=== PATIENT | female | born 1945 | race Two or more races ===

== ENCOUNTER 2017-06-12 09:51 | Emergency (ER) | payer MEDICARE, BC ==
[~2017-06-12] VITALS: Ht 152.4 cm; Wt 80.0 kg
[~2017-06-12 09:51] MED LIST: AMLODIPINE; ECOTRIN PO; INSU100C11 SQ; INSULIN REGULAR; IRBESARTAN; METF500T4 PO; METFORMIN HCL PO; PANTOPRAZOLE
[2017-06-12] MEDS ORDERED: SODIUM CHLORIDE 0.9% 500 ML IV ONE (10:21)
[2017-06-12] MEDS ORDERED: METOCLOPRAMIDE HCL 10MG/2ML VIAL IV ONE (10:30)
[2017-06-12] MEDS ORDERED: DIPHENHYDRAMINE 50MG/ML VIAL IV ONE (10:30)
[2017-06-12 10:47] LABS: EOSINOPHILS % 1.7 % (0.0-5.0); HEMOGLOBIN. 13.5 g/dL (12.0-16.0); LYMPHOCYTES % 28.7 % (20.0-50.0); MEAN CORPUSCULAR HEMOGLOBIN 29.4 pg (28.0-32.0); MEAN CORPUSCULAR VOLUME 88.8 fL (81.0-99.0); MEAN PLATELET VOLUME 7.7 fl (7.4-10.4); MONOCYTES % 6.8 % (2.0-8.0); NEUTROPHILS % 61.8 % (40.0-76.0); PLATELET 261 x1000/uL (130-400); RED BLOOD CELL COUNT 4.61 mill/uL (4.2-5.4); RED CELL DISTRIBUTION WIDTH 14.4 % (11.6-14.6)
[2017-06-12 11:03] LABS: CARBON DIOXIDE 25 mEq/L (21-32); CHLORIDE 109 mEq/L (98-107)
[2017-06-12 13:00] LABS: CLARITY URINE CLEAR (CLEAR); COLOR URINE YELLOW (YELLOW); GLUCOSE URINE 2+ (NEGATIVE); KETONES URINE TRACE (NEGATIVE); LEUKOCYTE ESTERASE URINE NEGATIVE (NEGATIVE); NITRITE URINE NEGATIVE (NEGATIVE); OCCULT BLOOD URINE NEGATIVE (NEGATIVE); PH URINE 5.5 (4.5-8.0); PROTEIN URINE NEGATIVE (NEGATIVE); SPECIFIC GRAVITY URINE 1.024 (1.005-1.030); UROBILINOGEN URINE 0.2 E.U./dL (0.2-1.0)
[2017-06-12 14:33] VITALS: BP 151/76
== END 2017-06-12 14:50 | disposition home or self-care (01) ==
LOC: ER 12:30
DX: H81.399 Other peripheral vertigo, unspecified ear (principal); R51 Headache; K21.9 Gastro-esophageal reflux disease without esophagitis; I10 Essential (primary) hypertension; E11.9 Type 2 diabetes mellitus without complications; E78.00 Pure hypercholesterolemia, unspecified; Z86.73 Personal history of transient ischemic attack (TIA), and cerebral infarction without residual deficits; Z88.0 Allergy status to penicillin; Z88.2 Allergy status to sulfonamides; Z88.8 Allergy status to other drugs, medicaments and biological substances; Z79.4 Long term (current) use of insulin; Z79.82 Long term (current) use of aspirin
CPT/HCPCS: 36415; 70450; 71010; 80053; 81001; 85025; 93005; 96361; 96374; 96375; 99285; J1200; J2765; J7040

== ENCOUNTER 2019-08-09 09:24 | Emergency (ER) | payer MEDICARE, BC ==
[~2019-08-09] VITALS: Ht 165.1 cm; Wt 82.0 kg
[~2019-08-09 09:24] MED LIST changes: +METF-414 PO; -METF500T4 PO
[2019-08-09] MEDS ORDERED: KETOROLAC 30MG/ML VIAL IM ONE (10:30)
[2019-08-09 11:31] VITALS: BP 132/68
== END 2019-08-09 11:08 | disposition home or self-care (01) ==
LOC: ER 09:50
DX: M25.531 Pain in right wrist (principal); I11.9 Hypertensive heart disease without heart failure; K21.9 Gastro-esophageal reflux disease without esophagitis; E11.9 Type 2 diabetes mellitus without complications; E78.00 Pure hypercholesterolemia, unspecified; Z90.49 Acquired absence of other specified parts of digestive tract; Z90.710 Acquired absence of both cervix and uterus; Z88.0 Allergy status to penicillin; Z88.2 Allergy status to sulfonamides; Z91.041 Radiographic dye allergy status; Z79.4 Long term (current) use of insulin; Z86.73 Personal history of transient ischemic attack (TIA), and cerebral infarction without residual deficits
CPT/HCPCS: 73110; 96372; 99283; J1885

== ENCOUNTER 2019-12-13 23:39 | Inpatient (IN) | payer MEDICARE, BC ==
[~2019-12-13] VITALS: Ht 152.4 cm; Wt 73.9 kg
[2019-12-14] MEDS ORDERED: ASPIRIN 81MG TABLET PO ONE (00:30)
[2019-12-14] MEDS ORDERED: NITROGLYCERIN 0.4MG TABLET SL SL ONE (01:00)
[2019-12-14 01:27] LABS: BASOPHILS % 0.8 % (0.0-2.0); EOSINOPHILS % 0.9 % (0.0-5.0); HEMATOCRIT. 41.2 % (36.0-48.0); HEMOGLOBIN. 13.6 g/dL (12.0-16.0); LYMPHOCYTES % 20.3 % (20.0-50.0); MEAN CORPUSCULAR HEMOGLOBIN 29.4 pg (28.0-32.0); MEAN CORPUSCULAR VOLUME 88.9 fL (81.0-99.0); MEAN PLATELET VOLUME 7.9 fl (7.4-10.4); MONOCYTES % 7.9 % (2.0-8.0); NEUTROPHILS % 70.1 % (40.0-76.0); PLATELET 274 x1000/uL (130-400); RED BLOOD CELL COUNT 4.63 mill/uL (4.2-5.4)
[2019-12-14 01:31] LABS: CHLORIDE 109 mEq/L (98-107)
[2019-12-14 10:00] VITALS: BP 143/57
[2019-12-14] MEDS ORDERED: IPRATROPIUM/ALBUTEROL 0.5-3(2.5)MG/3ML NEB NEB PRN (11:00)
[2019-12-14] MEDS ORDERED: GUAIFENESIN 200MG/10ML SUGAR FREE UDC PO PRN (11:00)
[2019-12-14] MEDS ORDERED: ONDANSETRON HCL 4MG/2ML INJ IV PRN (11:00)
[2019-12-14] MEDS ORDERED: HYDROCODONE/ACETAMINOPHEN 5/325MG TABLET PO PRN (11:00)
[2019-12-14] MEDS ORDERED: ACETAMINOPHEN 650MG SUPP PR PRN (11:00)
[2019-12-14] MEDS ORDERED: DEXTROSE 50% WATER 50ML SYRINGE IV PRN (11:00)
[2019-12-14] MEDS ORDERED: DOCUSATE SODIUM 100MG CAPSULE PO PRN (11:00)
[2019-12-14] MEDS ORDERED: CLONIDINE 0.1MG TABLET PO PRN (11:00)
[2019-12-14] MEDS ORDERED: DIPHENHYDRAMINE 50MG/ML VIAL IV PRN (11:00)
[2019-12-14] MEDS ORDERED: LORAZEPAM 0.5MG TABLET PO PRN (11:00)
[2019-12-14] MEDS ORDERED: ACETAMINOPHEN 325MG TABLET PO PRN (11:00)
[2019-12-14] MEDS ORDERED: NA PHOS,M-B/NA PHOS,DI-BA ENEMA 118ML PR PRN (11:00)
[2019-12-14] MEDS ORDERED: MAGNESIUM/ALUMINUM HYDROXIDE/SIMETHICONE 30ML UDC PO PRN (11:00)
[2019-12-14] MEDS ORDERED: INSLIS SUBCUT (11:09)
[2019-12-14] MEDS ORDERED: CHOL200059 MT (11:10)
[2019-12-14] MEDS ORDERED: GABA-529 MT (11:10)
[2019-12-14] MEDS ORDERED: DULA1.5P SQ (11:10)
[2019-12-14] MEDS ORDERED: OMEG100017 MT (11:10)
[2019-12-14] MEDS ORDERED: FAMO40TA70 MT (11:10)
[2019-12-14] MEDS ORDERED: ROSU5TAB MT (11:10)
[2019-12-14] MEDS ORDERED: AMLO10TA80 MT (11:10)
[2019-12-14] MEDS ORDERED: LOSA50TA41 MT (11:12)
[2019-12-14] MEDS ORDERED: HYDR-4233 TP (11:12)
[2019-12-14 12:00] VITALS: BP 143/57
[2019-12-14] MEDS: BLOOD SUGAR DIAGNOSTIC STRIP TEST SCH ×3 (12:40→20:43)
[2019-12-14] MEDS: ENOXAPARIN 40MG/0.4ML SYR SUBCUT SCH (13:31)
[2019-12-14] MEDS: INSULIN LISPRO 100 UNITS/ML SUBCUT SCH ×3 (13:32→20:59)
[2019-12-14 16:00] VITALS: BP 117/55
[2019-12-14 16:24] LABS: CLARITY URINE CLEAR (CLEAR); COLOR URINE YELLOW (YELLOW); KETONES URINE NEGATIVE (NEGATIVE); LEUKOCYTE ESTERASE URINE TRACE (NEGATIVE); NITRITE URINE NEGATIVE (NEGATIVE); OCCULT BLOOD URINE NEGATIVE (NEGATIVE); PH URINE 7.5 (4.5-8.0); PROTEIN URINE NEGATIVE (NEGATIVE); SPECIFIC GRAVITY URINE 1.013 (1.005-1.030); UROBILINOGEN URINE 0.2 E.U./dL (0.2-1.0)
[2019-12-14 16:55] LABS: *AMPHETAMINES SCREEN URINE NEGATIVE (NEGATIVE); *BARBITURATES SCREEN URINE NEGATIVE (NEGATIVE); *BENZODIAZEPINES SCREEN URINE NEGATIVE (NEGATIVE); *COCAINE SCREEN URINE NEGATIVE (NEGATIVE)
[2019-12-14 16:56] LABS: CANNABINOID URINE SCREEN NEGATIVE (NEGATIVE); METHADONE URINE SCREEN NEGATIVE (NEGATIVE); OPIATES URINE SCREEN NEGATIVE (NEGATIVE); PHENCYCLIDINE URINE SCREEN NEGATIVE (NEGATIVE)
[2019-12-14 17:08] LABS: PROTHROMBIN TIME 10.8 sec (9.6-11.0)
[2019-12-14 18:26] LABS: CREATINE KINASE MB FRACTION 1.5 ng/mL (0.5-3.6)
[2019-12-14 20:00] VITALS: BP 144/57
[2019-12-15] VITALS: BP 132/59
[2019-12-15 00:35] LABS: CREATINE KINASE MB FRACTION 1.2 ng/mL (0.5-3.6)
[2019-12-15 04:00] VITALS: BP 145/49
[2019-12-15 07:06] LABS: CHLORIDE 109 mEq/L (98-107)
[2019-12-15 07:19] LABS: BASOPHILS % 1.1 % (0.0-2.0); HEMATOCRIT. 39.2 % (36.0-48.0); HEMOGLOBIN. 13.2 g/dL (12.0-16.0); LYMPHOCYTES % 37.9 % (20.0-50.0); MEAN CORPUSCULAR HEMOGLOBIN 29.9 pg (28.0-32.0); MEAN CORPUSCULAR VOLUME 88.5 fL (81.0-99.0); MONOCYTES % 9.1 % (2.0-8.0); NEUTROPHILS % 48.9 % (40.0-76.0); PLATELET 271 x1000/uL (130-400); RED BLOOD CELL COUNT 4.43 mill/uL (4.2-5.4); RED CELL DISTRIBUTION WIDTH 14.7 % (11.6-14.6)
[2019-12-15 07:40] LABS: HDL CHOLESTEROL 71 mg/dL (40-59); T4 FREE 1.01 ng/dL (0.76-1.46)
[2019-12-15 07:41] LABS: LDL CHOLESTEROL 84 mg/dL (5-100)
[2019-12-15] MEDS: BLOOD SUGAR DIAGNOSTIC STRIP TEST SCH ×2 (07:44→12:50)
[2019-12-15] MEDS: INSULIN LISPRO 100 UNITS/ML SUBCUT SCH ×2 (07:45→12:51)
[2019-12-15 08:00] VITALS: BP 140/58
[2019-12-15] MEDS ORDERED: ASPIRIN 81MG EC TABLET PO SCH (09:00)
[2019-12-15] MEDS: ENOXAPARIN 40MG/0.4ML SYR SUBCUT SCH (09:57)
[2019-12-15 12:00] VITALS: BP 144/95
[2019-12-15 15:55] VITALS: BP 124/51
[2019-12-15 16:01] VITALS: BP 124/51
[2019-12-15] MEDS ORDERED: FAMOTIDINE 20MG TABLET PO SCH (21:00)
== END 2019-12-15 17:43 | disposition home or self-care (01) | DRG 391 ==
LOC: ER 23:39 → 7WST 12-14 04:03 → ENRESERV 12-14 07:48
PROVIDERS: ADMIT Internal Medicine; ATTEND Internal Medicine
DX: K21.9 Gastro-esophageal reflux disease without esophagitis (principal); I50.33 Acute on chronic diastolic (congestive) heart failure; I69.351 Hemiplegia and hemiparesis following cerebral infarction affecting right dominant side; C85.90 Non-Hodgkin lymphoma, unspecified, unspecified site; I11.0 Hypertensive heart disease with heart failure; E78.5 Hyperlipidemia, unspecified; E11.65 Type 2 diabetes mellitus with hyperglycemia; E86.0 Dehydration; E78.00 Pure hypercholesterolemia, unspecified; R07.89 Other chest pain; Z88.0 Allergy status to penicillin; Z88.2 Allergy status to sulfonamides; Z91.041 Radiographic dye allergy status; Z79.899 Other long term (current) drug therapy; Z79.84 Long term (current) use of oral hypoglycemic drugs; Z79.4 Long term (current) use of insulin; Z85.6 Personal history of leukemia; Z83.3 Family history of diabetes mellitus; Z82.49 Family history of ischemic heart disease and other diseases of the circulatory system; Z90.49 Acquired absence of other specified parts of digestive tract; Z90.710 Acquired absence of both cervix and uterus
CPT/HCPCS: 36415; 71045; 80053; 80061; 80305; 81003; 82550; 82553; 82962; 83036; 83880; 84439; 84443; 84484; 85025; 93005; 93306; 93970; 97162; 99285; J1200; J1650; J1815